=== PATIENT | female | born 1985 | race Caucasian/White ===

== ENCOUNTER 2018-03-19 12:26 | Emergency (ER) | payer OTHER ==
[2018-03-19 12:51] VITALS: BP 108/73; PULSE 75; TEMP 99; BMI 27.2
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
[2018-03-19] MEDS ORDERED: IBUPROFEN 400 MG TABLET (FP) PO ONE ×3 (13:20→13:23)
== END 2018-03-19 14:28 | disposition home or self-care (01) ==
LOC: JERFT 12:26
DX: J02.9 Acute pharyngitis, unspecified (principal); D17.1 Benign lipomatous neoplasm of skin and subcutaneous tissue of trunk
CPT/HCPCS: 71101-TC-FY; 87070; 87430; 99281-25